=== PATIENT | female | born 1985 | race Caucasian/White ===

== ENCOUNTER 2022-07-17 10:13 | Day surgery (SDC) | payer OTHER, SELFPAY ==
[2022-07-09 08:49] VITALS: BMI 21.9
[2022-07-17] VITALS (8 sets, daily range): BP systolic 110–129; BP diastolic 68–81; PULSE 45–73; RESP 14–20; TEMP 36.3–37; O2SAT 95–100; BMI 20.1
--- NOTE | 2022-07-17 07:09 | P.PNAN_ITS ---
Anes - Initial Pre Proc Eval Procedure: Operation Date: 07/17/22 12:00 Proposed Procedures p Bilateral Breast Augmentation Mammoplasty - Sammy Milton MD Date/Time: 07/17/22 07:09 Surgeon: Sammy Milton MD Pre Op Diagnosis: Micromastia Patient Data Age: 37 Gender: F Height: 1.63 m Weight: 58 kg Allergies Allergy/AdvReac Type Severity Reaction Status Date / Time No Known Allergies Allergy Verified 07/17/22 10:50 Home Medications Medication Instructions Recorded Confirmed Type multivitamin with minerals-folic 1 tablet PO DAILY 07/09/22 07/17/22 History acid 0.4 mg tablet Patient hx anesthesia problems: none Family hx anesthesia problems: none Results Review: All pre-operative results and documents have been reviewed as part of the pre- operative evaluation. [facility] Social History Social History Alcohol intake: current Substance use: never Substance use type: does not use Living arrangements: with family Spiritual care concerns: No Anes - Eval Final PreProcedure Day of Procedure 07/17/22 07:09 Patient weight: obese Heart: regular rate and rhythm Lungs: clear to auscultation Airway: Mallampati scale class II Neurological: alert and oriented Last oral intake: >/= 8 hours ASA classification: I Emergent: no Anesthetic plan: proceed Anesthesia type and monitoring: general LMA and standard monitoring Results Review: All pre-operative results and documents have been reviewed as part of the pre- operative evaluation. Informed Consent: The patient's anesthetic plan and its attendant risks and benefits were discussed with the patient/family/POA. Questions were solicited and answers provided to the satisfaction of the patient/family/POA.
[2022-07-17] MEDS: LACTATED RINGERS 1,000 ML 30 ML IV CONT (11:13)
--- NOTE | 2022-07-17 11:13 | SUR.PREOP ---
500CC IVF BOLUS STARTED PER DR PALACIOS'S ORDER
--- NOTE | 2022-07-17 12:09 | SUR.PREOP ---
FEMALE STAFF IN ROOM WITH PT WHILE DR PALACIOS MARKED HER. SPOUSE AT BEDSIDE ALSO
--- NOTE | 2022-07-17 12:13 | WPDHPUPDATE1 ---
History and Physical Update Update Date/Time: 07/17/22 12:13 History and Physical has been reviewed, including an updated exam of the patient. There are NO changes in the patient's condition. Risks, benefits, and alternatives have been discussed and questions answered. Patient agrees to proceed with procedure.
--- NOTE | 2022-07-17 12:14 | W.PM.PROC2 ---
Procedure Note - Detailed Date of Procedure 07/17/22 Pre-op Diagnosis Micromastia Post-op Diagnosis Same Procedure Performed Bilateral augmentation mammaplasty Surgeon Sammy Milton MD Anesthesia General Findings Bilateral Agustín Saleem SoftTouch 415cc Right - REF# [id number] SN [id number] Left - REF# [id number] SN [id number] Description of Procedure She is here today for bilateral breast augmentation. Previously and again today the risks, benefits, alternatives were discussed in extensive detail. I wanted her to be very realistic about the risks involved as well as expectations. We discussed aftercare and what to monitor for. Made sure answered all of her questions to her satisfaction today and consent was obtained. Marked in the preoperative holding area with their verification. The patient was taken to the operating room placed supine on the operating table. Anesthesia was provided by anesthesiology. A surgical time-out was taken. We cleansed the skin and 1% lidocaine and 0.25% Marcaine with epinephrine was used anesthetize as a field block. She was prepped and draped in a standard sterile fashion. Tegaderm nipple Camacho were placed. A 15 blade used to make an incision along the inframammary fold. Dissection was continued at 45 degree angle until the chest wall as identified. I incised the pectoralis major along its inferior border and completely released the inferior border leaving the medial border intact. I created a subpectoral pocket in the appropriate dimensions based on our preoperative planning for the implant. I then copiously irrigated with saline solution and verified a strict hemostasis. Next the use a triple antibiotic and Betadine containing solution to irrigate the pocket. I washed my gloves with the triple antibiotic and Betadine solution. We washed the implant immediately upon opening it with this solution and only opened it when we needed it. I used implant funnel and no-touch technique. The implant was introduced into the pocket using the funnel. Having verified positioning of the implant this was closed using 2-0 Vicryl followed by 3-0 Monocryl in a running subcuticular 4-0 Monocryl followed by tissue glue. Fluffs and surgical bra were placed. Patient was awoke and taken to PACU without difficulty. All instrument sponge counts were correct at the end of the case. Estimated Blood Loss 20 Drains No Packing No Pathology None sent Complications No immediate complications Condition Stable Disposition PACU
[2022-07-17] MEDS: ceFAZolin SODIUM 2 GM/20 ML SW SYRINGE IV PUSH (12:30)
[2022-07-17] MEDS: BUPIVACAINE HCL 0.25% 50 ML VIAL INFILTRATE (12:45)
[2022-07-17] MEDS: NACL 0.9% IRRIG POUR BOTTLE 900 ML, GENTAMICIN SULFATE INJ 160 MG, ceFAZolin 2 GM, POVI... IRRIGATION (12:54)
[2022-07-17] MEDS: LIDO 1%/EPINEPHRINE 1:100,000 20 ML VIAL 40 ML INFILTRATE (13:01)
--- NOTE | 2022-07-17 14:19 | WPDANESPN ---
Anes - Prog Note Post-Op Date/Time: 07/17/22 14:19 Cardiovascular status: normal Respiratory status: normal Airway patency: baseline Mental status: baseline Post-Op hydration status: normal Vital Signs: Last Vital Signs Temp 36.3 C L 07/17/22 13:37 Pulse 51 L 07/17/22 14:06 Resp 14 07/17/22 14:06 BP 129/76 07/17/22 14:06 Pulse Ox 98 07/17/22 14:06 O2 Del Method Room Air 07/17/22 14:06 O2 Flow Rate 5 07/17/22 13:37 Pain Score (VAS): 2 I/O: Intake & Output 07/16/22 07/17/22 07/17/22 23:59 07:59 15:59 Intake Total 900 Balance 900 Post-procedural complaints: none Patient Feedback: Patient satisfied with anesthetic care. Other Findings: Patient vital signs back to baseline. Patient denies nausea and vomiting. Patient's pain under control. Patient OK for discharge.
--- NOTE | 2022-07-17 14:59 | SUR.PHASEII ---
patient asked for pain pill upon arrival to recovery - but refused when brought to her--
== END 2022-07-17 15:12 | disposition home or self-care (01) ==
PROVIDERS: Visit Provider Surgery Plastic and Reconstructive Surgery
PROC: (CPT 19325; principal; 2022-07-17 12:00)
DX: N64.82 Hypoplasia of breast (principal)
CPT/HCPCS: 19325